=== PATIENT | male | born 2000 | race American Indian/Alaskan Native ===

== ENCOUNTER 2022-01-19 18:01 | Emergency (ER) | payer SELFPAY ==
[2022-01-19] MEDS ORDERED: ACETAMINOPHEN 500 MG TAB PO ONE (18:57)
[2022-01-19] MEDS ORDERED: IBUPROFEN 600 MG TAB PO ONE (18:57)
--- NOTE | 2022-01-19 19:24 | XRay Report ---
XR chest routine 2V INDICATION / CLINICAL INFORMATION: COUGH. COMPARISON: None available. FINDINGS: SUPPORT DEVICES: None. HEART /PULMONARY VASCULATURE: No significant abnormality. LUNGS / PLEURA: No significant pulmonary or pleural abnormality. No pneumothorax. ADDITIONAL FINDINGS: No significant additional findings. IMPRESSION: 1. No acute findings. Signer Name: Joe Ruiz MD Signed: 01/19/2022 7:19 PM Workstation Name: [id number]
[2022-01-19 20:01] VITALS: BP 133/73
--- NOTE | 2022-01-19 20:25 | Emergency Department Report ---
- General Chief Complaint: Fever Stated Complaint: BODY ACHE/WEAKNESS Source: patient Mode of arrival: Ambulatory Limitations: No Limitations - History of Present Illness Initial Comments: Patient is a 21-year-old male with no past medical history who presents to the ED with complaint of acute onset persistent diffuse body aches and pains, nasal and sinus congestion, persistent dry cough, sore throat, intermittent fever of up to 102 F and lack of appetite for the last 2 days. Patient states that the symptoms have been constant and persistent especially in the last 12 hours. Patient states that no one else at home is had similar symptoms. Patient denies dizziness, syncope, chest pain and shortness of breath, abdominal pain, nausea and vomiting and diarrhea, dysuria, urinary frequency and urgency or change in vision. MD Complaint: fever, cough, rhinorrhea, nasal congestion, sinus pain -: Sudden, days(s) (2) Severity: severe Severity scale (0 -10): 7 Quality: sharp, aching Consistency: constant Improves With: nothing Worsens With: nothing Context: sick contacts Associated Symptoms: denies other symptoms, fever, chills, myalgias, headache, rhinorrhea, nasal congestion, cough. denies: diaphoresis, chest pain, shortness of breath, nausea, vomiting, dysuria, rash, right sweats, weight loss, hoarseness, ear pain - Related Data Previous Rx's Medication Instructions Recorded Last Taken Type Azithromycin [Zithromax Z-BRITTANI] 250 mg PO DAILY #6 tab 01/19/22 Unknown Rx Benzonatate [Tessalon Perles] 100 mg PO Q8HR #30 cap 01/19/22 Unknown Rx Cetirizine HCl [Zyrtec 10mg tab] 10 mg PO DAILY #30 tab 01/19/22 Unknown Rx Ibuprofen [Motrin] 600 mg PO Q8H PRN #30 tablet 01/19/22 Unknown Rx Allergies Allergy/AdvReac Type Severity Reaction Status Date / Time No Known Allergies Allergy Verified 01/19/22 18:26 ED Review of Systems ROS: Stated complaint: BODY ACHE/WEAKNESS Other details as noted in HPI Constitutional: chills, fever, malaise, weakness Eyes: denies: eye pain, eye discharge, vision change ENT: congestion Respiratory: cough Cardiovascular: denies: chest pain, palpitations Endocrine: no symptoms reported Gastrointestinal: denies: abdominal pain, nausea, diarrhea Genitourinary: denies: urgency, dysuria Musculoskeletal: arthralgia, myalgia. denies: back pain, joint swelling Skin: denies: rash, lesions Neurological: denies: headache, weakness, paresthesias Psychiatric: denies: anxiety, depression Hematological/Lymphatic: denies: easy bleeding, easy bruising ED Past Medical Hx - Social History Smoking Status: Unknown if ever smoked Substance Use Type: None - Medications Home Medications: Home Medications Medication Instructions Recorded Confirmed Last Taken Type Azithromycin [Zithromax Z-BRITTANI] 250 mg PO DAILY #6 tab 01/19/22 Unknown Rx Benzonatate [Tessalon Perles] 100 mg PO Q8HR #30 cap 01/19/22 Unknown Rx Cetirizine HCl [Zyrtec 10mg tab] 10 mg PO DAILY #30 tab 01/19/22 Unknown Rx Ibuprofen [Motrin] 600 mg PO Q8H PRN #30 tablet 01/19/22 Unknown Rx ED Physical Exam - General Limitations: No Limitations General appearance: alert, in no apparent distress - Head Head exam: Present: atraumatic, normocephalic, normal inspection - Eye Eye exam: Present: normal appearance, PERRL, EOMI - ENT ENT exam: Present: normal orophraynx, mucous membranes moist, normal external ear exam, other (Grossly congested nasal passages) - Neck Neck exam: Present: normal inspection, full ROM. Absent: tenderness - Respiratory Respiratory exam: Present: normal lung sounds bilaterally. Absent: respiratory distress, wheezes, rales, rhonchi, chest wall tenderness, accessory muscle use, decreased breath sounds, prolonged expiratory - Cardiovascular Cardiovascular Exam: Present: normal rhythm, tachycardia. Absent: systolic murmur, diastolic murmur, rubs, gallop - GI/Abdominal GI/Abdominal exam: Present: soft, normal bowel sounds. Absent: tenderness, guarding, rebound - Extremities Exam Extremities exam: Present: normal inspection, full ROM, normal capillary refill. Absent: tenderness, pedal edema, joint swelling, calf tenderness - Back Exam Back exam: Present: normal inspection, full ROM. Absent: tenderness, CVA tenderness (R), muscle spasm, paraspinal tenderness, vertebral tenderness - Neurological Exam Neurological exam: Present: alert, oriented X3, CN II-XII intact, normal gait, reflexes normal - Psychiatric Psychiatric exam: Present: normal affect, normal mood - Skin Skin exam: Present: warm, dry, intact, normal color. Absent: rash ED Course Vital Signs 01/19/22 01/19/22 01/19/22 18:24 20:00 20:01 Temperature 102.3 F H 99.0 F Pulse Rate 105 H 77 Respiratory 18 14 14 Rate Blood Pressure 133/73 Blood Pressure 142/55 [Left] O2 Sat by Pulse 98 95 95 Oximetry 01/19/22 20:03 Temperature 97.9 F Pulse Rate 77 Respiratory 14 Rate Blood Pressure Blood Pressure 133/73 [Left] O2 Sat by Pulse 95 Oximetry ED Medical Decision Making - Radiology Data Radiology results: report reviewed, image reviewed [facility] [address] [place] [address] XRay Report Signed Patient: RENE SANTACRUZ MR#: [id number] : 2000 Acct:[id number] Age/Sex: 21 / M ADM Date: 01/19/22 Loc: ED Attending Dr: Ordering Physician: SEMAJ GUERRA Date of Service: 01/19/22 Procedure(s): XR chest routine 2V Accession Number(s): [id number] cc: SEMAJ GUERRA Fluoro Time In Minutes: XR chest routine 2V INDICATION / CLINICAL INFORMATION: COUGH. COMPARISON: None available. FINDINGS: SUPPORT DEVICES: None. HEART /PULMONARY VASCULATURE: No significant abnormality. LUNGS / PLEURA: No significant pulmonary or pleural abnormality. No pneumothorax. ADDITIONAL FINDINGS: No significant additional findings. IMPRESSION: 1. No acute findings. Signer Name: Mike Cruz MD Signed: 01/19/2022 7:19 PM Workstation Name: [id number] Transcribed By: JS Dictated By: MIKE CRUZ MD Electronically Authenticated By: MIKE CRUZ MD Signed Date/Time: 01/19/221918 DD/ 18 TD/TT: - Medical Decision Making This is a 21-year-old male with no past medical history who presents to the ED with complaint of acute onset persistent diffuse body aches and pains, nasal and sinus congestion, persistent dry cough, sore throat, intermittent fever of up to 102 F and lack of appetite for the last 2 days. Patient states that the symptoms have been constant and persistent especially in the last 12 hours. In the ED, patient is alert and oriented x3 and is not in any distress. Patient is febrile and tachycardic in triage. Patient was treated for fever in the ED and chest x-ray showed no acute cardiopulmonary abnormalities or pneumonitis. Rapid influenza test was positive for type A influenza. The rest of the lab test results were nonactionable. On reevaluation, patient felt better and was discharged home on medications and advised to follow-up with his primary care physician in 5 to 7 days for reevaluation or return to the ED immediately if symptoms get worse. - Differential Diagnosis Influenza; strep pharyngitis; pneumonia; URI; rhinitis; sinusitis Critical care attestation.: If time is entered above; I have spent that time in minutes in the direct care of this critically ill patient, excluding procedure time. ED Disposition Clinical Impression: Fever and chills, Acute upper respiratory infection, Influenza due to influenza virus, type A, human Acute bronchitis Qualifiers: Bronchitis organism: other organism Qualified Code(s): J20.8 - Acute bronchitis due to other specified organisms Acute frontal sinusitis Qualifiers: Recurrence: non-recurrent Qualified Code(s): J01.10 - Acute frontal sinusitis, unspecified Disposition: 01 HOME / SELF CARE / HOMELESS Is pt being admited?: No Does the pt Need Aspirin: No Condition: Stable Instructions: Cough, Adult, Nnis-so-Ttna, Sinusitis, Adult, [id number], Acute Bronchitis, Adult, [id number], Upper Respiratory Infection, Adult, [id number], Acute Bronchitis (ED) Additional Instructions: Chest x-ray showed no acute cardiopulmonary abnormalities or pneumonitis. Therefore take medications with food, drink plenty of fluids and follow-up with your primary care physician in 5 to 7 days for reevaluation. Return to the ED immediately if symptoms get worse. Prescriptions: Ibuprofen [Motrin] 600 mg PO Q8H PRN #30 tablet PRN Reason: Pain Benzonatate [Tessalon Perles] 100 mg PO Q8HR #30 cap Azithromycin [Zithromax Z-BRITTANI] 250 mg PO DAILY #6 tab Cetirizine HCl [Zyrtec 10mg tab] 10 mg PO DAILY #30 tab Referrals: [facility] [Provider Group] - 3-5 Days Time of Disposition: 20:23 Print Language: WOLOF
== END 2022-01-19 21:23 | disposition home or self-care (01) ==
LOC: ED 18:01
DX: J20.9 Acute bronchitis, unspecified (principal); R50.9 Fever, unspecified; J01.10 Acute frontal sinusitis, unspecified; J09.X2 Influenza due to identified novel influenza A virus with other respiratory manifestations
CPT/HCPCS: 71046; 87116; 87430; 99284; 87502